=== PATIENT | male | born 2005 | race Caucasian/White ===

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

== ENCOUNTER 2024-12-28 21:37 | Emergency (ER) | payer OTHER ==
--- OUTSIDE RECORDS SUMMARY | 2024-12-28 21:41 | XMS REPORT | Clinical Summary ---
Author Name Unknown Organization [facility] Address [address] [place] [address] Care Team Providers Care Radio Repairman Name Role Phone Sara Snow Rita Unavailable Amisha Farrell Unavailable PipPia beckwith ANP Unavailable [phone] Sanjuana Fuentes DO Unavailable Encounters Date Type Department Care Team Description 09/05/2024 Telephone [facility] PATIENT ACCESS Lola Panchal RN after 12/29/2023 Social History Tobacco Use Types Packs/Day Years Used Date Smoking Tobacco: Never Assessed Sex and Gender Information Value Date Recorded Sex Assigned at Not on file Legal Sex Male 10:41 AM CDT Gender Identity Not on file Sexual Orientation Not on file Plan of Treatment Health Maintenance Due Date Last Done Comments COVID-19 Vaccine ( season) 2024 09/29/2020, 09/08/2020, 09/05/2020 Influenza Vaccine (#1) 2025 , 05/02/2021, 03/30/2020, Additional history exists Pneumococcal Vaccine Aged Out 11/01/2020, 09/05/2020, 04/04/2005, Additional history exists No longer eligible based on patient's age to complete this topic Insurance MEDICAID STAR NON SSI Member Subscriber Plan / Payer (Ef fective 2024-Present) Name:Luis Myers Relation to Subscriber:Self Name:Luis Myers Payer ID:[id number] Group ID:[id number] Type:Medicaid Address: [address] [place] [facility] MEDICAID STAR NON SSI Member Subscriber Plan / Payer (Ef fective 2024-Present) Name:Luis Myers Relation to Subscriber:Self Name:Luis Myers Payer ID:[id number] Group ID:[id number] Type:Medicaid Address: [address] [place] Advance Directives Documents on File Type Date Recorded Patient Psychologist Experimental Expl anation Advance Directives: Medical Power of Silk Screen Printer Machine 09/16/2024 Medical Power of Att orney Care Teams Radio Repairman Relationship Specialty Start Date End Date Sara Snow [address] [facility] [address] [place] [address] PCP - External Referring Pediatric Hematology and Oncology 09/05/24 Amisha Farrell [address] [place] [address] [place] [phone] PCP - External Primary Care Provider 09/06/24 Pia Sandoval ANP [address] [place] [phone] PCP - External Follow Up A 09/06/24 Sanjuana Fuentes DO [address] [place] [address] Dr [place] [place] [phone] PCP - External Follow Up B Pulmonary Medicine 09/06/24
[2024-12-28] MEDS ORDERED: ONDANSETRON 4 MG/2 ML VIAL ONE (22:16)
[2024-12-28] MEDS ORDERED: MORPHINE 4 MG/ML SYR ONE (22:17)
--- NOTE | 2024-12-28 22:21 | RAD REPORT ---
EXAM: Chest Single View HISTORY: 19 years Male CHEST PAIN COMPARISON: No prior exams FINDINGS: LUNGS/PLEURA: The lungs are clear. No pleural effusions or pneumothorax. No pulmonary edema. CARDIAC/MEDIASTINUM: The cardiac silhouette is within normal limits. UPPER ABDOMEN: No significant abnormality. BONES: No acute abnormality. LINES/TUBES/OTHER: N/A IMPRESSION: No evidence of acute cardiopulmonary disease.
[2024-12-28 22:48] LABS: Urine Microscopic Reflex YN NO UMIC
[2024-12-28 23:01] LABS: Absolute Lymphocytes (CBC) 5.6 K/uL (0.7-4.9); Hematocrit 42.3 % (39.6-49.0); Hemoglobin 15.5 g/dL (13.6-17.9); MCH 32.9 pg (27.0-35.0); MCHC 36.6 g/dL (32.0-36.0); MCV 89.8 fL (80-100); MPV 7.5 fL (7.6-11.3); Nucleated RBC Absolute Count 0.0 (0-0); Nucleated Red Blood Cells % 0.2 % (0-0); RBC Red Blood Cell Count 4.71 M/uL (4.33-5.43); White Blood Count 13.60 thou/uL (4.3-10.9)
[2024-12-28 23:07] LABS: ALT/SGPT 21.0 U/L (16-61); Albumin 4.0 g/dL (3.4-5.0); Albumin/Globulin Ratio 1.2 (1.1-1.8); Alkaline Phosphatase 110.0 U/L (45-117); Anion Gap 9.8 mEq/L (5.0-15.0); BUN Blood Urea Nitrogen 10.0 mg/dL (7-18); Globulin 3.3 g/dL (2.3-3.5); Glucose Level 97.0 mg/dL (74-106); Lipase 28.0 U/L (13-75); Potassium 3.8 mEq/L (3.5-5.1); Troponin High Sensitivity 4.5 pg/mL (<58.9)
[2024-12-28 23:08] LABS: AST/SGOT 14.0 U/L (15-37)
[2024-12-28] MEDS ORDERED: KETOROLAC 30 MG/ML INJ ONE (23:19)
[2024-12-29] MEDS ORDERED: DICYCLOMINE HCL 10 MG CAP ONE (00:34)
[2024-12-29] MEDS ORDERED: ACETAMINOPHEN 500 MG TAB ONE (00:35)
--- NOTE | 2024-12-29 00:44 | EDPHYS ---
Physician Documentation [facility] Name: Antonio Smith Age: 19 yrs Sex: Male : 2005 Arrival Date: 12/28/2024 Time: 21:37 Bed 7 Private MD: ED Physician Jean Carlos Loza HPI: 12/28 21:53 This 19 yrs old Male presents to ER via Wheelchair with complaints of Back Pain, cr8 Abdominal Pain, Chest Pain. 21:53 Patient is a 19-year-old male with a history of seizure disorder splenectomy autism cr8 that was brought in the emergency room for left-sided abdominal pain that radiates to the chest and left side of his back. It began at 5 PM today. Reports nausea but no vomiting. Denies dyspnea but is had a recent cough. No dysuria hematuria. Patient is never had this pain before. Reports it hurts to take a deep breath. Denies diarrhea or constipation. Movement makes the pain worse.. Historical: - Allergies: 21:51 Sulfa (Sulfonamide Antibiotics); cp4 21:51 Albuterol; cp4 21:51 Clindamycin; cp4 21:51 Latex; cp4 21:51 peach; cp4 21:51 PENICILLINS; cp4 21:51 Prednisone; cp4 21:51 Suprax; cp4 21:51 Tape; cp4 21:51 Pollen; cp4 21:51 cefixime; cp4 21:51 Vancomycin; cp4 21:51 Singulair; cp4 - PMHx: 21:51 Anxiety; Asthma; Autism; Bipolar disorder; epilepsy; GERD; cp4 - Immunization history:: Adult Immunizations up to date. - Infectious Disease History:: Denies. - Social history:: Smoking status: Patient denies any tobacco usage or history of. ROS: 22:28 Constitutional: as per HPI cr8 Exam: 22:28 Cardiovascular: Regular rate and rhythm with a normal S1 and S2. No gallops, murmurs, cr8 or rubs. Respiratory: Lungs have equal breath sounds bilaterally, clear to auscultation. No rales, rhonchi or wheezes noted. No increased work of breathing. 22:28 Constitutional: This is a well developed, well nourished patient who is awake, alert, appears in pain Skin: Warm, dry with normal turgor. Normal color with no rashes, no lesions, and no evidence of cellulitis. MS/ Extremity: Pulses equal, no cyanosis. Neurovascular intact. Full, normal range of motion. Neuro: Awake and alert, GCS 15, oriented to person, place, time, and situation. Cranial nerves II-XII grossly intact. Motor strength 5/5 in all extremities. Sensory grossly intact. 22:28 Abdomen/GI: Palpation: moderate abdominal tenderness, in the epigastric area and left upper quadrant, 22:31 ECG was reviewed by the Attending Physician. cr8 12/29 00:30 Special observations: no evidence of discomfort, Patient states he still in pain. cr8 Tylenol and dicyclomine have been ordered. Discussed results treatment plan with parents. Explained no clear etiology as to the cause of his pain., Vital Signs: 12/28 21:50 BP 111 / 77; Pulse 92; Resp 18; Temp 97.4; Pulse Ox 99% ; Weight 98.43 kg; Height 5 ft. cp4 9 in. ; Pain 10/10; 23:25 BP 120 / 73; Pulse 72; Resp 17 S; Pulse Ox 99% on R/A; lg3 12/29 00:18 BP 118 / 77; Pulse 58; Resp 19 S; Pulse Ox 98% on R/A; lg3 01:11 BP 112 / 69; Pulse 64; Resp 18 S; Pulse Ox 99% on R/A; lg3 12/28 21:50 Body Mass Index 32.04 (98.43 kg, 175.26 cm) cp4 12/28 21:50 Pain Scale: Adult cp4 Nidia Coma Score: 12/28 22:43 Eye Response: spontaneous(4). Motor Response: obeys commands(6). Verbal Response: bm8 oriented(5). Total: 15. 12/29 00:29 Eye Response: spontaneous(4). Motor Response: obeys commands(6). Verbal Response: bm8 oriented(5). Total: 15. MDM: 12/28 21:47 Medical Screening Exam initiated cr8 12/29 01:00 Data reviewed: vital signs, nurses notes, lab test result(s), Beta HCG: cardiac cr8 enzymes, CBC, electrolytes, hepatic panel, urinalysis, EKG, radiologic studies, CT scan, plain films. ED course: Patient came in for left upper quadrant abdominal pain that radiates to the back and reported chest pain. Considered acute coronary syndrome pericarditis myocarditis pulmonary embolus. EKG was unremarkable for acute ischemic changes and his troponin was normal so doubt NSTEMI. Presentation not consistent with acute PE (Wells low risk, PERC negative),pneumothorax (not visualized on chest xr), thoracic aortic dissection, pericarditis, tamponade, pneumonia (no infectious symptoms, clear chest xr), myocarditis (no recent illness, neg trop). . Given work up, low suspicion for acute hepatobiliary disease (including acute cholecystitis or cholangitis-normal liver function test, CT abdomen pelvis showed no acute abnormalities involving the hepatobiliary structures), acute pancreatitis (neg lipase), PUD (including gastric perforation), acute infectious processes (pneumonia, hepatitis, pyelonephritis), acute appendicitis, vascular catastrophe, bowel obstruction, viscus perforation. CT did suggest possible cystitis because it is bladder wall was thickened. We had collected a urine for analysis and it was unremarkable. Also considered acute pyelonephritis given the a.m. flank pain but his urinalysis was unremarkable. Considered ureterolithiasis/kidney stone but imaging did not show any evidence of hydronephrosis or stone. CT did show possible enteritis given the liquid field: Small intestines. Discussed with the parents possibly that could be the cause of his pain. Explained low clear etiology as to the exact cause of his pain at this time but no emergent condition was identified. Advised the need to follow-up with his PCP in a couple days for reevaluation. Discussed him returning to the emergency room for new or worsening of symptoms.. 12/28 21:53 Order name: CBC with Diff; Complete Time: 23:06 cr8 12/28 21:53 Order name: Troponin HS; Complete Time: 23:09 cr8 12/28 21:53 Order name: CMP; Complete Time: 23:09 cr8 12/28 21:53 Order name: Lipase; Complete Time: 23:09 cr8 12/28 21:53 Order name: UA Rfx Amanuel Cult if indicated; Complete Time: 22:50 cr8 12/28 21:53 Order name: XRAY Chest (1 view); Complete Time: 22:26 cr8 12/28 22:50 Interpretation: No acute disease. cr8 12/28 23:02 Order name: CT Abd/Pelvis - IV Contrast Only cr8 12/28 21:53 Order name: EKG - Nurse/Tech; Complete Time: 22:30 cr8 12/28 21:53 Order name: IV Saline Lock; Complete Time: 22:30 cr8 EC/06 22:18 Rate is 70 beats/min. Rhythm is regular. QRS [place] is Normal. LA interval is normal. QRS cr8 interval is normal. QT interval is normal. T waves are Normal. No ST changes noted. Clinical impression: No evidence of ischemia. Interpreted by me. Administered Medications: 22:29 Drug: Ondansetron IVP 4 mg IVP once; over 2 minutes Route: IVP; Site: right antecubital;bm8 12/29 00:30 Follow up: Response: No adverse reaction bm8 12/28 22:30 Drug: morphine IVP or IV 2 mg IVP once over 4 mins Route: IVP; Infused Over: 4 mins; bm8 Site: right antecubital; 12/29 00:30 Follow up: Response: No adverse reaction bm8 12/28 23:21 Drug: Ketorolac IVP 15 mg IVP once Route: IVP; Site: right antecubital; bm8 12/29 00:30 Follow up: Response: No adverse reaction bm8 00:39 Drug: Acetaminophen PO 1000 mg PO once Route: PO; bm8 01:11 Follow up: Response: No adverse reaction lg3 00:39 Drug: Dicyclomine PO 20 mg PO once Route: PO; bm8 01:11 Follow up: Response: No adverse reaction lg3 Disposition: 01:47 Co-signature as Attending Physician, Jean Carlos Loza MD I reviewed the patient's care rn provided by the Advanced Practice Provider and agree with the diagnosis and treatment plan. Disposition Summary: 12/29/24 00:43 Discharge Ordered Notes: Location: Home cr8 Condition: Stable cr8 Diagnosis - Other viral enteritis cr8 - Upper abdominal pain, unspecified cr8 - Chest pain, unspecified cr8 Followup: cr8 - With: Private Physician - When: 2 - 3 days - Reason: Recheck today's complaints, Re-evaluation by your physician Followup: cr8 - With: Emergency Department - When: As needed - Reason: Fever > 102 F, If symptoms return, Trouble breathing, Worsening of condition, or any other concerns Discharge Instructions: - Discharge Summary Sheet cr8 - Abdominal Pain, Adult cr8 - Nonspecific Chest Pain, Adult cr8 - Pain Without a Known Cause cr8 Forms: - Medication Reconciliation Form cr8 - Antibiotic Education cr8 - Patient Portal Instructions cr8 - Leadership Thank You Letter cr8 Prescriptions: - dicyclomine 20 mg Oral tablet - take 1 tablet ORAL route every 6 hours 1 tablet every 6 hours as needed for cr8 abdominal cramping or pain; 20 tablet; Refills: 0, Product Selection Permitted Signatures: Dispatcher [employer] EDNM Jean Carlos Loza MD MD rn Potter, Christina cp4 Niles Trejo RN RN bm8 Fabricio Cramer NP INSIDE SALES DIRECTOR alex8 Sherri Stein RN lg3 Corrections: (The following items were deleted from the chart) 12/28 21:53 21:53 CBC+H.LAB.BRZ ordered. EDNM EDNM 21:53 21:53 Troponin High Sensitivity+C.LAB.BRZ ordered. EDNM EDNM 21:53 21:53 COMPREHENSIVE METABOLIC PANEL+C.LAB.BRZ ordered. EDNM EDNM 21:53 21:53 LIPASE+C.LAB.BRZ ordered. EDNM EDNM 21:53 21:53 UA Rfx Amanuel Cult if indicated+U.LAB.BRZ ordered. EDNM EDNM 21:53 21:53 Chest Single View+RAD.RAD.BRZ ordered. EDNM EDMS 22:14 22:12 Chest Single View+RAD.RAD.BRZ ordered. [facility] EDNM 22:29 21:53 Patient is a 19-year-old male with a history of seizure disorder splenectomy cr8 autism that was brought in the emergency room for left-sided abdominal pain that radiates to the chest and left side of his back. It began at 5 PM today. Reports nausea but no vomiting. Denies dyspnea but is had a recent cough. No dysuria hematuria.. cr8 23:03 23:03 Abdomen Pelvis W Con+CT.RAD.BRZ ordered. [facility] EDNM 12/29 01:04 01:00 ED course: Patient came in for left upper quadrant abdominal pain that radiates cr8 to the back and reported chest pain. Considered acute coronary syndrome pericarditis myocarditis pulmonary embolus. EKG was unremarkable for acute ischemic changes and his troponin was normal. Given work up, low suspicion for acute hepatobiliary disease (including acute cholecystitis or cholangitis), acute pancreatitis (neg lipase), PUD (including gastric perforation), acute infectious processes (pneumonia, hepatitis, pyelonephritis), acute appendicitis, vascular catastrophe, bowel obstruction, viscus perforation. cr8 01:34 01:00 ED course: Patient came in for left upper quadrant abdominal pain that radiates cr8 to the back and reported chest pain. Considered acute coronary syndrome pericarditis myocarditis pulmonary embolus. EKG was unremarkable for acute ischemic changes and his troponin was normal so doubt NSTEMI. Presentation not consistent with acute PE (Wells low risk, PERC negative),pneumothorax (not visualized on chest xr), thoracic aortic dissection, pericarditis, tamponade, pneumonia (no infectious symptoms, clear chest xr), myocarditis (no recent illness, neg trop). . Given work up, low suspicion for acute hepatobiliary disease (including acute cholecystitis or cholangitis-normal liver function test, CT abdomen pelvis showed no acute abnormalities involving the hepatobiliary structures), acute pancreatitis (neg lipase), PUD (including gastric perforation), acute infectious processes (pneumonia, hepatitis, pyelonephritis), acute appendicitis, vascular catastrophe, bowel obstruction, viscus perforation. CT did suggest possible cystitis because it is bladder wall was thickened. We had collected a urine for analysis and it was unremarkable. Also considered acute pyelonephritis given the a.m. flank pain but his urinalysis was unremarkable. Considered ureterolithiasis/kidney stone but imaging did not show any evidence of hydronephrosis or stone.. cr8
--- NOTE | 2024-12-29 00:44 | ER ---
Nurse's Notes [facility] Name: Antonio Smith Age: 19 yrs Sex: Male : 2005 Arrival Date: 12/28/2024 Time: 21:37 Bed 7 Private MD: Diagnosis: Other viral enteritis;Upper abdominal pain, unspecified;Chest pain, unspecified Presentation: 12/28 21:50 Chief complaint: Patient states: abdominal pain that started earlier today. Coronavirus cp4 screen: Client denies travel out of the [place] in the last 14 days. At this time, the client does not indicate any symptoms associated with coronavirus-19. Ebola Screen: Patient negative for fever greater than or equal to 101.5 degrees Fahrenheit, and additional compatible Ebola Virus Disease symptoms Patient denies exposure to infectious person. Patient denies travel to an Ebola-affected area in the 21 days before illness onset. No symptoms or risks identified at this time. Initial Sepsis Screen: Does the patient meet any 2 criteria? No. Patient's initial sepsis screen is negative. Does the patient have a suspected source of infection? No. Patient's initial sepsis screen is negative. Risk Assessment: Do you want to hurt yourself or someone else? Patient reports no desire to harm self or others. Onset of symptoms was December 28, 2024. 21:50 Method Of Arrival: Wheelchair cp4 21:50 Acuity: JERONIMO 3 cp4 Triage Assessment: 21:51 General: Appears in no apparent distress. uncomfortable, Behavior is calm, cooperative, cp4 appropriate for age. Pain: Complains of pain in abdomen. Musculoskeletal: Circulation, motion, and sensation intact. Range of motion: intact in all extremities. Historical: - Allergies: 21:51 Sulfa (Sulfonamide Antibiotics); cp4 21:51 Albuterol; cp4 21:51 Clindamycin; cp4 21:51 Latex; cp4 21:51 peach; cp4 21:51 PENICILLINS; cp4 21:51 Prednisone; cp4 21:51 Suprax; cp4 21:51 Tape; cp4 21:51 Pollen; cp4 21:51 cefixime; cp4 21:51 Vancomycin; cp4 21:51 Singulair; cp4 - PMHx: 21:51 Anxiety; Asthma; Autism; Bipolar disorder; epilepsy; GERD; cp4 - Immunization history:: Adult Immunizations up to date. - Infectious Disease History:: Denies. - Social history:: Smoking status: Patient denies any tobacco usage or history of. Screenin:42 [facility] ED Fall Risk Assessment (Adult) History of falling in the last 3 months, bm8 including since admission No falls in past 3 months (0 pts) Confusion or Disorientation No (0 pts) Intoxicated or Sedated No (0 pts) Impaired Gait No (0 pts) Mobility Assist Device Used No (0 pt) Altered Elimination No (0 pt) Score/Fall Risk Level 0 - 2 = Low Risk Oriented to surroundings, Maintained a safe environment, Educated pt \T\ family on fall prevention, incl call for assistance when getting out of bed, Assessed \T\ reinforced patient's understanding of fall precautions, Hourly rounding (assess needs \T\ fall precautionary measures) done, Used ambulatory aids as needed (educated on \T\ assisted with), Used gait belt as appropriate. Abuse screen: Denies threats or abuse. Nutritional screening: No deficits noted. Tuberculosis screening: No symptoms or risk factors identified. Assessment: 22:43 General: Appears in no apparent distress. comfortable, Behavior is calm, cooperative, bm8 appropriate for age. Pain: Complains of pain in back and chest Pain currently is 10 out of 10 on a pain scale. Neuro: No deficits noted. Level of Consciousness is awake, alert, obeys commands, Oriented to person, place, time, situation, Appropriate for age. Cardiovascular: Capillary refill < 3 seconds in bilateral fingers Patient's skin is warm and dry. Rhythm is sinus rhythm. Respiratory: Airway is patent Respiratory effort is even, unlabored, Respiratory pattern is regular, symmetrical, Breath sounds are clear bilaterally. GI: No signs and/or symptoms were reported involving the gastrointestinal system. : No signs and/or symptoms were reported regarding the genitourinary system. EENT: No signs and/or symptoms were reported regarding the EENT system. Derm: No signs and/or symptoms reported regarding the dermatologic system. Musculoskeletal: No signs and/or symptoms reported regarding the musculoskeletal system. 23:25 Reassessment: Patient appears in no apparent distress at this time. No changes from lg3 previously documented assessment. Patient and/or family updated on plan of care and expected duration. Pain level reassessed. Patient is alert, oriented x 3, equal unlabored respirations, skin warm/dry/pink. 12/29 00:29 Reassessment: Patient appears in no apparent distress at this time. Patient and/or bm8 family updated on plan of care and expected duration. Pain level reassessed. Patient is alert, oriented x 3, equal unlabored respirations, skin warm/dry/pink. Patient denies pain at this time. Patient states feeling better. Patient states symptoms have improved. 01:11 Reassessment: Patient appears in no apparent distress at this time. No changes from lg3 previously documented assessment. Patient and/or family updated on plan of care and expected duration. Pain level reassessed. Patient is alert, oriented x 3, equal unlabored respirations, skin warm/dry/pink. Patient states feeling better. Patient states symptoms have improved. Vital Signs: 12/28 21:50 BP 111 / 77; Pulse 92; Resp 18; Temp 97.4; Pulse Ox 99% ; Weight 98.43 kg; Height 5 ft. cp4 9 in. ; Pain 10/10; 23:25 BP 120 / 73; Pulse 72; Resp 17 S; Pulse Ox 99% on R/A; lg3 12/29 00:18 BP 118 / 77; Pulse 58; Resp 19 S; Pulse Ox 98% on R/A; lg3 01:11 BP 112 / 69; Pulse 64; Resp 18 S; Pulse Ox 99% on R/A; lg3 12/28 21:50 Body Mass Index 32.04 (98.43 kg, 175.26 cm) cp4 12/28 21:50 Pain Scale: Adult cp4 Nidia Coma Score: 12/28 22:43 Eye Response: spontaneous(4). Motor Response: obeys commands(6). Verbal Response: bm8 oriented(5). Total: 15. 12/29 00:29 Eye Response: spontaneous(4). Motor Response: obeys commands(6). Verbal Response: bm8 oriented(5). Total: 15. ED Course: 12/28 21:41 Patient arrived in ED. jj6 21:43 Fabricio Cramer NP is PHCP. cr8 21:43 Jean Carlos Loza MD is Attending Physician. cr8 21:51 Triage completed. cp4 21:51 Arm band placed on right wrist. Patient placed in waiting room. cp4 22:09 Niles Trejo, RN is Primary Nurse. bm8 22:14 XRAY Chest (1 view) In Process Unspecified. EDMS 22:41 No provider procedures requiring assistance completed. Initial lab(s) drawn, by me, bm8 sent to lab. Urine collected: clean catch specimen, clear, EKG done, by ED staff, reviewed by Fabricio Cramer BARTENDER HELPER. Inserted saline lock: 20 gauge in right antecubital area, using aseptic technique. Blood collected. Flushed with 10 mL NS. 22:42 Patient has correct armband on for positive identification. Bed in low position. Call bm8 light in reach. Side rails up X 1. Client placed on continuous cardiac and pulse oximetry monitoring. NIBP monitoring applied. front desk monitor on. Pulse ox on. NIBP on. Door closed. Noise minimized. Warm blanket given. Pillow given. Verbal reassurance given. Head of bed elevated. 22:42 Patient maintains SpO2 saturation greater than 95% on room air. Response to oxygen bm8 therapy: symptoms improved. 23:42 CT Abd/Pelvis - IV Contrast Only In Process Unspecified. EDMS 12/29 01:12 IV discontinued, intact, bleeding controlled, No redness/swelling at site. Pressure lg3 dressing applied. Administered Medications: 12/28 22:29 Drug: Ondansetron IVP 4 mg IVP once; over 2 minutes Route: IVP; Site: right antecubital;bm8 12/29 00:30 Follow up: Response: No adverse reaction bm8 12/28 22:30 Drug: morphine IVP or IV 2 mg IVP once over 4 mins Route: IVP; Infused Over: 4 mins; bm8 Site: right antecubital; 12/29 00:30 Follow up: Response: No adverse reaction bm8 12/28 23:21 Drug: Ketorolac IVP 15 mg IVP once Route: IVP; Site: right antecubital; bm8 12/29 00:30 Follow up: Response: No adverse reaction bm8 00:39 Drug: Acetaminophen PO 1000 mg PO once Route: PO; bm8 01:11 Follow up: Response: No adverse reaction lg3 00:39 Drug: Dicyclomine PO 20 mg PO once Route: PO; bm8 01:11 Follow up: Response: No adverse reaction lg3 Medication: 12/28 22:43 VIS not applicable for this client. bm8 Outcome: 12/29 00:43 Discharge ordered by MD. vasquez 01:11 Discharged to home ambulatory, with family, lg3 01:11 Condition: stable 01:11 Discharge instructions given to patient, Instructed on discharge instructions, follow up and referral plans. medication usage, Demonstrated understanding of instructions, follow-up care, medications, Prescriptions given X 1, 01:12 Patient left the ED. lg3 Signatures: Dispatcher [employer] EDMS Sherri Stein, RN RN lg3 Kellee Flores Christina cp4 Niles Trejo, ANG RN bm8 Fabricio Cramer, POPPY BARTENDER HELPER cr8
--- NOTE | 2024-12-29 00:55 | RAD REPORT ---
EXAM: Abdomen Pelvis W Contrast CLINICAL INDICATION: 19-year-old male with abdominal pain. COMPARISON: 10/05/2020. EXAMINATION: CT of the abdomen and pelvis was performed following intravenous administration of contr ast. Oral contrast was not administered. Multiplanar reformatted images were provided. This exam was performed according to our departmental dose optimization program which includes use of automated exposure control, adjustment of the mA and/or kV according to patient size and/or use of iterative reconstruction technique. FINDINGS: Chest: Evaluation through the lung bases reveals no focal opacity, pleural effusion or pneumothorax. Heart size is within normal limits. No pericardial effusion. Abdomen and pelvis: The liver, gallbladder, pancreas, bilateral kidneys and bilateral adrenal glands are within normal limits. Prior splenectomy. Gastric fundoplication. The vessels are patent and normal in caliber. No abdominopelvic lymph nodes are noted to be pathologically enlarged by CT measurement criteria. The bowel is within normal limits without abnormal bowel wall thickness or bowel dilation. Unformed s tool present throughout the large and small bowel compatible with liquid fecal content/diarrhea, raising the question of enteritis. No free air. No free abdominopelvic fluid collections. The appendix is within normal limits. Thickene d appearance of the bladder wall may be secondary to incomplete distention, however can be seen in the setting of infectious or inflammatory process. Please correlate with laboratory values. The osseous structures are within normal limits. IMPRESSION: 1. No specific acute intra-abdominal findings are noted to suggest etiology of the patient's abdomi nal pain. 2. Unformed stool present throughout the large and small bowel compatible with liquid fecal content /diarrhea, raising the question of enteritis. 3. Thickened appearance of the bladder wall may be secondary to incomplete distention, however can be seen in the setting of infectious or inflammatory process. Please correlate with laboratory values. Electronically signed by: Susan Rowe MD 12/29/2024 12:26 AM CDT Due to temporary technical issues with the PACS/Familink reporting system, reports are being sandy d by the in-house radiologist without review as a courtesy to ensure prompt reporting the interpreting radiologist is fully responsible for the content of the report. Transcribed Date/Time: 12/29/2024 12:55 AM
[2024-12-29 01:27] VITALS: TEMP 97.4
[2024-12-29 01:32] VITALS: BP 112/69; O2SAT 99
== END 2024-12-29 01:12 | disposition home or self-care (01) ==
LOC: ER 21:37
DX: A08.39 Other viral enteritis (principal); R07.9 Chest pain, unspecified; F84.0 Autistic disorder
CPT/HCPCS: 93005; 85025; 36415; 81003; 84484; 83690; 80053; 74177; 71045; 96375; 96374; 99285; Q9967; J2405